=== PATIENT | female | born 1940 | race Caucasian/White ===

== ENCOUNTER → 2021-02-15 | Outpatient (REF) | payer MEDICARE, OTHER | LOC: M LAB REF 12:51 | PROVIDERS: ATTEND Nurse Practitioner Family | DX: E83.42 Hypomagnesemia (principal) ==

== ENCOUNTER → 2023-04-11 | Outpatient (REF) | payer MEDICARE, OTHER ==
[2023-04-11 18:46] LABS: PERCENT SATURATION 11.6 % (13.2-45.0)
[2023-04-11 18:48] LABS: FERRITIN 99.7 NG/ML (7.3-270.7)
== END ==
LOC: M LAB REF 17:54
PROVIDERS: ATTEND Nurse Practitioner Family
DX: D50.9 Iron deficiency anemia, unspecified (principal)

== ENCOUNTER → 2023-08-10 | Outpatient (REF) | payer MEDICARE, OTHER ==
[2023-08-10 18:53] LABS: PERCENT SATURATION 20.8 % (13.2-45.0)
[2023-08-10 18:59] LABS: FERRITIN 67.1 NG/ML (7.3-270.7)
== END ==
LOC: M LAB REF 17:49
PROVIDERS: ATTEND Nurse Practitioner Family
DX: D50.9 Iron deficiency anemia, unspecified (principal)

== ENCOUNTER → 2025-06-12 | Outpatient (CLI) | payer MEDICARE, OTHER | LOC: M RAD 10:12 | PROVIDERS: ATTEND Radiology Diagnostic Radiology | DX: I70.203 Unspecified atherosclerosis of native arteries of extremities, bilateral legs (principal) ==

== ENCOUNTER → 2025-06-17 | Outpatient (POV) | payer MEDICARE, OTHER ==
[~2025-06-17] MED LIST: ATOR1TAB19 PO; CLOBETASOL TOP; CLON-412 PO; FARX1TAB3 PO; FERR325T3 PO; GLIP5TAB17 PO; HYDR50TA46 PO; MAGN64TASA PO; METO200T15 PO; NOVOINJ3 SC; ONDA-282 PO; SPIR-10 PO; TORS5TAB2 PO; TOUJ1.2I SC; XALA0.007 OU
== END ==
LOC: M IRPOV 09:30
PROVIDERS: ATTEND Radiology Diagnostic Radiology
DX: I73.9 Peripheral vascular disease, unspecified (principal); I12.9 Hypertensive chronic kidney disease with stage 1 through stage 4 chronic kidney disease, or unspecified chronic kidney disease; E11.22 Type 2 diabetes mellitus with diabetic chronic kidney disease; E78.5 Hyperlipidemia, unspecified; N18.9 Chronic kidney disease, unspecified; Z79.84 Long term (current) use of oral hypoglycemic drugs; Z79.899 Other long term (current) drug therapy; Z82.49 Family history of ischemic heart disease and other diseases of the circulatory system; Z83.3 Family history of diabetes mellitus

== ENCOUNTER 2025-06-26 19:44 | Inpatient (IN) | payer MEDICARE, OTHER ==
[~2025-06-26] VITALS: Ht 162.6 cm; Wt 69.2 kg
[2025-06-26] MEDS ORDERED: MOM 30 ML SUSPENSION UDC PO PRN (22:20)
[2025-06-26] MEDS ORDERED: **hydrALAZINE HCL** 25 MG TAB PO ONE (22:20)
[2025-06-26] MEDS ORDERED: ACETAMINOPHEN 325 MG TAB PO PRN (22:20)
[2025-06-26] MEDS ORDERED: DEXTROSE 50% 50 ML SYRINGE IV PRN (22:25)
[2025-06-26] MEDS ORDERED: GLUCOSE 4 GM CHEW PO PRN (22:25)
[2025-06-26] MEDS ORDERED: GLUCAGON INJ 1 MG VIAL SC PRN (22:25)
[2025-06-26 22:38] VITALS: BP 178/84; TEMP 98.3; O2SAT 96
[2025-06-26] MEDS: NS (Normal Saline) 0.9% 1,000 ML IV SCH (23:00)
[2025-06-26] MEDS ORDERED: GLIP5TAB17 PO (23:16)
[2025-06-26] MEDS ORDERED: ATOR1TAB19 PO (23:16)
[2025-06-26] MEDS ORDERED: HYDR50TA46 PO (23:16)
[2025-06-26] MEDS ORDERED: XALA0.007 OU (23:16)
[2025-06-26] MEDS ORDERED: TORS5TAB2 PO (23:16)
[2025-06-26] MEDS ORDERED: SPIR-10 PO (23:16)
[2025-06-26] MEDS ORDERED: TOUJ1.2I SC (23:16)
[2025-06-26] MEDS ORDERED: CLOBETASOL TOP (23:16)
[2025-06-26] MEDS ORDERED: METO200T15 PO (23:16)
[2025-06-26] MEDS ORDERED: MAGN64TASA PO (23:16)
[2025-06-26] MEDS ORDERED: NOVOINJ3 SC (23:16)
[2025-06-26] MEDS ORDERED: FERR325T3 PO (23:16)
[2025-06-26] MEDS ORDERED: FARX1TAB3 PO (23:16)
[2025-06-26] MEDS ORDERED: CLON-412 PO (23:16)
[2025-06-26] MEDS ORDERED: HOME MED LIST COMPLETE! XX SCH (23:30)
[2025-06-27] MEDS: INSULIN LISPRO (NovoLOG) PER UNIT SC SCH ×2 (00:12→21:00)
[2025-06-27] MEDS: UNRESOLVED CLARIFICATION ENTRY XX STA (00:18)
[2025-06-27 04:00] VITALS: BP 151/55; TEMP 99.7; O2SAT 94; O2SAT 95
[2025-06-27] MEDS: ONDANSETRON 4MG/2ML VIAL IV PRN (06:02)
[2025-06-27 06:52] LABS: PLATELET COUNT, AUTOMATED 306 10^3/uL (150-450)
[2025-06-27 07:16] LABS: ALT/SGPT 70.0 U/L (7.0-40); AST/SGOT 51.0 U/L (<34); CALCIUM LEVEL 8.8 MG/DL (8.3-10.6); CARBON DIOXIDE LEVEL 20.0 MMOL/L (20-31); CHLORIDE LEVEL 107.0 MMOL/L (98-107); CREATININE FOR GFR 1.13 MG/DL (0.55-1.30); GLOMERULAR FILTRATION RATE 48.0 (>32); MAGNESIUM LEVEL 2.1 MG/DL (1.8-2.4); POTASSIUM SERUM 3.8 MMOL/L (3.5-5.1); SODIUM LEVEL 142.0 MMOL/L (136-145)
[2025-06-27] MEDS ORDERED: MORPHINE 2 MG/ML 1 ML VIAL IV PRN (08:20)
[2025-06-27] MEDS: ENOXAPARIN 40 MG/0.4 ML SYRINGE (J1650 PER 10MG) SC SCH (08:53)
[2025-06-27] MEDS: PANTOPRAZOLE 40MG TAB PO SCH (08:53)
[2025-06-27] MEDS: METOPROLOL SUCC. 100 MG *XL* TAB PO SCH (08:54)
[2025-06-27] MEDS: **hydrALAZINE HCL** 25 MG TAB PO SCH (08:55)
[2025-06-27 10:00] VITALS: BP 143/66; TEMP 97.9; O2SAT 98
[2025-06-27 14:00] VITALS: BP 139/65; TEMP 97.2; O2SAT 97
[2025-06-27 18:00] VITALS: BP 131/63; TEMP 98.2; O2SAT 96
[2025-06-27 19:44] VITALS: BP 127/61; TEMP 98.2; O2SAT 96
[2025-06-27] MEDS ORDERED: GLUCOSE 4 GM CHEW PO PRN (19:55)
[2025-06-27] MEDS ORDERED: GLUCAGON INJ 1 MG VIAL SC PRN (19:55)
[2025-06-27] MEDS ORDERED: DEXTROSE 50% 50 ML SYRINGE IV PRN (19:55)
[2025-06-28 05:05] VITALS: BP 140/63; TEMP 97; O2SAT 95
[2025-06-28 06:19] LABS: PLATELET COUNT, AUTOMATED 249 10^3/uL (150-450)
[2025-06-28 06:48] LABS: ALT/SGPT 77.0 U/L (7.0-40); AST/SGOT 75.0 U/L (<34); CALCIUM LEVEL 8.4 MG/DL (8.3-10.6); CARBON DIOXIDE LEVEL 24.0 MMOL/L (20-31); CHLORIDE LEVEL 106.0 MMOL/L (98-107); CREATININE FOR GFR 1.17 MG/DL (0.55-1.30); GLOMERULAR FILTRATION RATE 46.0 (>32); MAGNESIUM LEVEL 2.1 MG/DL (1.8-2.4); POTASSIUM SERUM 4.2 MMOL/L (3.5-5.1); SODIUM LEVEL 140.0 MMOL/L (136-145)
[2025-06-28] MEDS ORDERED: ONDA-282 PO (09:02)
[2025-06-28] MEDS: INSULIN LISPRO (NovoLOG) PER UNIT SC SCH (09:17)
[2025-06-28 09:27] VITALS: BP 136/61
== END 2025-06-28 10:00 | disposition home or self-care (01) | DRG 444 ==
LOC: M MS5PR 21:20
PROVIDERS: ADMIT Internal Medicine; ATTEND Student in an Organized Health Care Education/Training Program
DX: K80.20 Calculus of gallbladder without cholecystitis without obstruction (principal); K85.90 Acute pancreatitis without necrosis or infection, unspecified; I10 Essential (primary) hypertension; E11.51 Type 2 diabetes mellitus with diabetic peripheral angiopathy without gangrene; Z79.82 Long term (current) use of aspirin; E78.00 Pure hypercholesterolemia, unspecified; Z79.4 Long term (current) use of insulin; Z79.899 Other long term (current) drug therapy